=== PATIENT | male | born 1955 | race Caucasian/White ===

== ENCOUNTER 2024-08-25 18:37 | Inpatient (IN) | payer OTHER ==
[2024-08-25] MEDS: ACETAMINOPHEN 1000 MG/100 ML BAG IVPB ONE (19:44)
[2024-08-25 19:50] LABS: ABSOLUTE IMMATURE GRANULOCYTES 0.02 x10^3/uL (0.0-0.031)
[2024-08-25 19:52] LABS: BASOPHILS # 0.02 x10^3/uL (0.01-0.08); EOSINOPHIL % 2.1 % (0.8-7.0); EOSINOPHILS # 0.14 x10^3/uL (0.04-0.54); HEMATOCRIT 38.6 % (40.1-51.0); MCHC 33.7 g/dl (32.3-36.5); MEAN CELL VOLUME 89.6 fl (79.0-92.2); MEAN PLT VOLUME 10.5 fl (9.4-12.4); MONOCYTE # 0.33 x10^3/uL (0.30-0.82); MONOCYTE % 4.9 % (5.3-12.2); PLATELET COUNT 130 x10^3/uL (163-337); RDW 13.6 % (12.2-16.1)
[2024-08-25 19:55] LABS: EPI CELLS 6 /uL (0-25.1); HYALINE CASTS 0 /uL (0-3.1); URINE APPEARANCE CLEAR; URINE BACTERIA 14 /uL (0-1359); URINE BILIRUBIN 2+ (NEGATIVE); URINE COLOR DK YELLOW; URINE GLUCOSE (UA) NEGATIVE (NEGATIVE); URINE KETONE NEGATIVE (NEGATIVE); URINE LEUK ESTERASE TRACE (NEGATIVE); URINE NITRITE NEGATIVE (NEGATIVE); URINE PROTEIN NEGATIVE (NEGATIVE); URINE RBC 18 /uL (0-23.9); URINE WBC 6 /uL (0-25.8)
[2024-08-25 20:52] LABS: POTASSIUM 3.4 mmol/L (3.5-5.1)
[2024-08-25 20:55] LABS: CALCIUM 8.9 mg/dL (8.5-10.1)
[2024-08-25 20:56] LABS: ALBUMIN 3.2 g/dl (3.4-5.0); BLOOD UREA NITROGEN 14.9 mg/dL (7-18)
[2024-08-25 20:59] LABS: CREATININE 0.8 mg/dL (0.55-1.3)
[2024-08-25] MEDS ORDERED: CEFTRIAXONE 1 G/50 ML PREMIX 50 ML IVPB ONE (21:00)
[2024-08-25 21:01] LABS: BILIRUBIN,TOTAL 4.1 mg/dL (0.2-1); TOT PROT 5.9 g/dl (6.4-8.2)
[2024-08-26] MEDS ORDERED: ACETAMINOPHEN 1000 MG/100 ML BAG IVPB PRN (10:29)
[2024-08-26] MEDS: FUROSEMIDE 40 MG TABLET (FP) PO SCH (10:52)
[2024-08-26] MEDS: POTASSIUM CHLORIDE TABS 20 MEQ TABLET.ER (FP) PO SCH (10:52)
[2024-08-26] MEDS: SENNOSIDES 8.8 MG/5 ML SYRUP PO SCH (10:52)
[2024-08-26] MEDS: CEFTRIAXONE 1 G/50 ML PREMIX 50 ML IVPB SCH (10:52)
[2024-08-26 11:21] VITALS: BMI 30.5
[2024-08-26 22:09] LABS: COCAINE, UR NEGATIVE (NEGATIVE); METHADONE, UR NEGATIVE (NEGATIVE); OPIATES, URI NEGATIVE (NEGATIVE); URINE AMPHETAMINES NEGATIVE (NEGATIVE); URINE BARBITURATES NEGATIVE (NEGATIVE); URINE BENZODIAZEPINES NEGATIVE (NEGATIVE)
[2024-08-26 22:10] LABS: PHENCYCLIDINE,URINE NEGATIVE (NEGATIVE)
[2024-08-27 09:49] LABS: ABSOLUTE IMMATURE GRANULOCYTES 0.01 x10^3/uL (0.0-0.031); BASOPHILS # 0.02 x10^3/uL (0.01-0.08); EOSINOPHILS # 0.14 x10^3/uL (0.04-0.54); HEMATOCRIT 43.2 % (40.1-51.0); HEMOGLOBIN 14.3 g/dL (13.7-17.5); MCHC 33.1 g/dl (32.3-36.5); MEAN CELL VOLUME 89.6 fl (79.0-92.2); MEAN PLT VOLUME 10.8 fl (9.4-12.4); MONOCYTE # 0.28 x10^3/uL (0.30-0.82); PLATELET COUNT 154 x10^3/uL (163-337); RDW 13.6 % (12.2-16.4)
[2024-08-27 10:14] LABS: ALBUMIN 3.3 g/dl (3.4-5.0)
[2024-08-27 10:16] LABS: BILIRUBIN,DIRECT 1.9 mg/dL (0.0-0.2)
[2024-08-27 10:19] LABS: TOT PROT 6.2 g/dl (6.4-8.2)
[2024-08-27] MEDS: ACETAMINOPHEN 325 MG TABLET (FP) PO PRN (16:16)
[2024-08-27 20:00] LABS: POTASSIUM 3.8 mmol/L (3.5-5.1)
[2024-08-27 20:02] LABS: ALBUMIN 3.4 g/dl (3.4-5.0); CALCIUM 9.3 mg/dL (8.5-10.1)
[2024-08-27 20:07] LABS: CREATININE 0.7 mg/dL (0.55-1.3)
[2024-08-27 20:08] LABS: TOT PROT 6.4 g/dl (6.4-8.2)
[2024-08-27 20:09] LABS: BILIRUBIN,TOTAL 2.3 mg/dL (0.2-1)
[2024-08-27 21:37] LABS: BLOOD UREA NITROGEN 10.1 mg/dL (7-18); MAGNESIUM 2.1 mg/dL (1.8-2.4)
[2024-08-28 08:14] LABS: ABSOLUTE IMMATURE GRANULOCYTES 0.01 x10^3/uL (0.0-0.031); BASOPHILS # 0.02 x10^3/uL (0.01-0.08); EOSINOPHIL % 4.9 % (0.8-7.0); EOSINOPHILS # 0.23 x10^3/uL (0.04-0.54); HEMATOCRIT 46.8 % (40.1-51.0); HEMOGLOBIN 15.4 g/dL (13.7-17.5); MCHC 32.9 g/dl (32.3-36.5); MEAN CELL VOLUME 90.3 fl (79.0-92.2); MEAN PLT VOLUME 10.3 fl (9.4-12.4); MONOCYTE # 0.34 x10^3/uL (0.30-0.82); MONOCYTE % 7.3 % (5.3-12.2); PLATELET COUNT 201 x10^3/uL (163-337); RDW 13.5 % (12.2-16.4)
[2024-08-28 08:16] LABS: INR 1.01 (0.83-1.09)
[2024-08-28 08:31] LABS: POTASSIUM 3.9 mmol/L (3.5-5.1)
[2024-08-28 08:45] LABS: CALCIUM 9.9 mg/dL (8.5-10.1)
[2024-08-28 08:46] LABS: ALBUMIN 3.8 g/dl (3.4-5.0); BLOOD UREA NITROGEN 12.3 mg/dL (7-18); MAGNESIUM 2.2 mg/dL (1.8-2.4)
[2024-08-28 08:48] LABS: CREATININE 0.7 mg/dL (0.55-1.3)
[2024-08-28 08:50] LABS: TOT PROT 7.3 g/dl (6.4-8.2)
[2024-08-28 09:00] LABS: BILIRUBIN,TOTAL 2.6 mg/dL (0.2-1)
[2024-08-28] MEDS: GABAPENTIN 300 MG CAPSULE PO SCH (16:23)
[2024-08-28 19:09] LABS: GLIADIN ANTIBODY IGA 5 units (0-19); TRANSGLUTAMINASE IGG 4 U/mL (0-5)
[2024-08-28] MEDS: OLANZapine 10 MG TABLET PO SCH (22:13)
[2024-08-29] MEDS: oxyCODONE HCL 5 MG TABLET PO ONE (03:52)
[2024-08-29 08:36] LABS: ABSOLUTE IMMATURE GRANULOCYTES 0.02 x10^3/uL (0.0-0.031); BASOPHILS # 0.04 x10^3/uL (0.01-0.08); EOSINOPHIL % 6.8 % (0.8-7.0); EOSINOPHILS # 0.28 x10^3/uL (0.04-0.54); HEMATOCRIT 42.5 % (40.1-51.0); HEMOGLOBIN 14.1 g/dL (13.7-17.5); MCHC 33.2 g/dl (32.3-36.5); MEAN CELL VOLUME 89.9 fl (79.0-92.2); MONOCYTE # 0.28 x10^3/uL (0.30-0.82); MONOCYTE % 6.8 % (5.3-12.2); PLATELET COUNT 187 x10^3/uL (163-337); RDW 13.5 % (12.2-16.4)
[2024-08-29 09:08] LABS: CALCIUM 9.5 mg/dL (8.5-10.1)
[2024-08-29 09:09] LABS: ALBUMIN 3.3 g/dl (3.4-5.0); BLOOD UREA NITROGEN 11.6 mg/dL (7-18); MAGNESIUM 2.3 mg/dL (1.8-2.4)
[2024-08-29 09:12] LABS: BILIRUBIN,TOTAL 1.6 mg/dL (0.2-1); CREATININE 0.6 mg/dL (0.55-1.3); PHOSPHOROUS 3.6 mg/dL (2.5-4.9); TOT PROT 6.3 g/dl (6.4-8.2)
[2024-08-29] MEDS: PANTOPRAZOLE 40 MG TABLET PO SCH (09:28)
[2024-08-29] MEDS: LIDOCAINE PATCH REMOVAL MC SCH (12:37)
[2024-08-29] MEDS: LIDOCAINE 5% TOPICAL PATCH TP SCH (23:01)
[2024-08-30 08:48] LABS: ABSOLUTE IMMATURE GRANULOCYTES 0.04 x10^3/uL (0.0-0.031); BASOPHILS # 0.03 x10^3/uL (0.01-0.08); EOSINOPHIL % 5.1 % (0.8-7.0); EOSINOPHILS # 0.26 x10^3/uL (0.04-0.54); HEMOGLOBIN 15.3 g/dL (13.7-17.5); MCHC 33.3 g/dl (32.3-36.5); MEAN PLT VOLUME 9.9 fl (9.4-12.4); MONOCYTE % 5.9 % (5.3-12.2); PLATELET COUNT 211 x10^3/uL (163-337); RDW 13.5 % (12.2-16.4)
[2024-08-30 09:14] LABS: POTASSIUM 4.3 mmol/L (3.5-5.1)
[2024-08-30 09:18] LABS: ALBUMIN 3.5 g/dl (3.4-5.0); CALCIUM 9.3 mg/dL (8.5-10.1)
[2024-08-30 09:19] LABS: MAGNESIUM 2.2 mg/dL (1.8-2.4)
[2024-08-30 09:21] LABS: CREATININE 0.6 mg/dL (0.55-1.3)
[2024-08-30 09:23] LABS: BILIRUBIN,TOTAL 1.5 mg/dL (0.2-1); TOT PROT 6.8 g/dl (6.4-8.2)
[2024-08-30] MEDS: traMADol HCL 50 MG TABLET PO SCH (10:06)
[2024-08-30] MEDS: LIDOCAINE 5% TOPICAL PATCH TP SCH (11:30)
[2024-08-30 13:07] LABS: BILIRUBIN,DIRECT 0.9 mg/dL (0.0-0.2)
[2024-08-30] MEDS: LIDOCAINE 4% PATCH TP SCH (14:47)
[2024-08-30] MEDS: oxyCODONE HCL 5 MG TABLET PO PRN (17:16)
[2024-08-30] MEDS: LIDOCAINE PATCH REMOVAL MC SCH (21:21)
[2024-08-30] MEDS ORDERED: LIDOCAINE PATCH REMOVAL MC SCH (22:00)
[2024-08-31] MEDS ORDERED: BUPIVACAINE HCL/PF 0.25% (2.5MG/ML) 10 ML VIAL ONE (07:18)
[2024-08-31] MEDS ORDERED: ROCURONIUM BROMIDE 50 MG/5 ML SYRINGE ONE (07:31)
[2024-08-31] MEDS ORDERED: SUCCINYLCHOLINE CHLORIDE 200 MG/10 ML SYRINGE ONE (07:31)
[2024-08-31] MEDS ORDERED: MIDAZOLAM HCL 2 MG/2 ML SINGLE DOSE VIAL ONE (07:32)
[2024-08-31] MEDS ORDERED: PROPOFOL 20 ML ONE ×2 (07:36)
[2024-08-31] MEDS ORDERED: ACETAMINOPHEN INJECTION 100 ML ONE (07:50)
[2024-08-31] MEDS: BUPIVACAINE HCL/PF 0.25% (2.5MG/ML) 10 ML VIAL IJ ONE (07:55)
[2024-08-31] MEDS ORDERED: HYDROmorphone HCl 2 MG/ML VIAL ONE (07:56)
[2024-08-31] MEDS ORDERED: SUGAMMADEX SODIUM 200 MG/2 ML VIAL ONE (07:58)
[2024-08-31] MEDS ORDERED: TRANEXAMIC ACID 1000 MG/10 ML VIAL ONE (08:22)
[2024-08-31] MEDS: LACTATED RINGERS SOLUTION 1,000 ML IV SCH ×2 (10:33→10:45)
[2024-08-31] MEDS: LIDOCAINE 5% TOPICAL PATCH TP SCH (12:03)
[2024-08-31] MEDS: FUROSEMIDE 40 MG TABLET (FP) PO SCH (12:03)
[2024-08-31] MEDS: GABAPENTIN 300 MG CAPSULE PO SCH (14:40)
[2024-08-31] MEDS: ACETAMINOPHEN 1000 MG/100 ML BAG IVPB SCH (14:41)
[2024-08-31 14:45] LABS: HEMATOCRIT 43.2 % (40.1-51.0); HEMOGLOBIN 14.3 g/dL (13.7-17.5); MCHC 33.1 g/dl (32.3-36.5); MEAN CELL VOLUME 90.9 fl (79.0-92.2); MEAN PLT VOLUME 10.2 fl (9.4-12.4); PLATELET COUNT 195 x10^3/uL (163-337); RDW 13.3 % (12.2-16.4)
[2024-08-31 15:33] LABS: HEPATITIS B SURF AG NON-MATERN NON-REACTIVE (NONREACTIVE)
[2024-08-31 15:45] LABS: POTASSIUM 4.6 mmol/L (3.5-5.1)
[2024-08-31 15:49] LABS: CALCIUM 9.3 mg/dL (8.5-10.1)
[2024-08-31 15:50] LABS: ALBUMIN 3.4 g/dl (3.4-5.0); BLOOD UREA NITROGEN 14.8 mg/dL (7-18)
[2024-08-31 15:53] LABS: CREATININE 0.7 mg/dL (0.55-1.3)
[2024-08-31 15:54] LABS: BILIRUBIN,TOTAL 1.1 mg/dL (0.2-1); TOT PROT 6.3 g/dl (6.4-8.2)
[2024-08-31 16:01] LABS: HCV DIAGNOSTIC IN-HOUSE W/RFLX NON-REACTIVE (NONREACTIVE)
[2024-08-31] MEDS: LIDOCAINE PATCH REMOVAL MC SCH (21:14)
[2024-08-31] MEDS: POTASSIUM CHLORIDE TABS 20 MEQ TABLET.ER (FP) PO SCH (21:14)
[2024-08-31] MEDS: OLANZapine 10 MG TABLET PO SCH (21:14)
[2024-08-31] MEDS: oxyCODONE HCL 5 MG TABLET PO PRN (21:57)
[2024-08-31] MEDS ORDERED: LIDOCAINE PATCH REMOVAL MC SCH (22:00)
[2024-09-01 08:29] LABS: ABSOLUTE IMMATURE GRANULOCYTES 0.02 x10^3/uL (0.0-0.031); BASOPHILS # 0.01 x10^3/uL (0.01-0.08); EOSINOPHIL % 1.2 % (0.8-7.0); EOSINOPHILS # 0.08 x10^3/uL (0.04-0.54); HEMATOCRIT 39.3 % (40.1-51.0); HEMOGLOBIN 12.8 g/dL (13.7-17.5); MCHC 32.6 g/dl (32.3-36.5); MEAN CELL VOLUME 91.4 fl (79.0-92.2); MEAN PLT VOLUME 10.1 fl (9.4-12.4); MONOCYTE # 0.34 x10^3/uL (0.30-0.82); MONOCYTE % 5.2 % (5.3-12.2); PLATELET COUNT 219 x10^3/uL (163-337); RDW 13.5 % (12.2-16.4)
[2024-09-01 08:46] LABS: POTASSIUM 4.2 mmol/L (3.5-5.1)
[2024-09-01 08:51] LABS: BLOOD UREA NITROGEN 17.8 mg/dL (7-18); CALCIUM 9.2 mg/dL (8.5-10.1)
[2024-09-01 08:55] LABS: CREATININE 0.7 mg/dL (0.55-1.3)
[2024-09-01 08:56] LABS: BILIRUBIN,TOTAL 0.9 mg/dL (0.2-1); TOT PROT 5.7 g/dl (6.4-8.2)
[2024-09-01] MEDS: MULTIVITAMINS (DAILY MVI) TABLET (FP) PO SCH (09:30)
[2024-09-01] MEDS: AMINO ACIDS/PROTEIN HYDROLYS 30 ML LIQUID.PKT PO SCH (09:30)
[2024-09-01] MEDS: ASCORBIC ACID 250 MG TABLET (FP) PO SCH (09:31)
[2024-09-01 16:16] VITALS: RESP 18
[2024-09-02 09:31] LABS: ABSOLUTE IMMATURE GRANULOCYTES 0.02 x10^3/uL (0.0-0.031); BASOPHILS # 0.02 x10^3/uL (0.01-0.08); EOSINOPHIL % 2.8 % (0.8-7.0); EOSINOPHILS # 0.16 x10^3/uL (0.04-0.54); HEMATOCRIT 42.1 % (40.1-51.0); HEMOGLOBIN 13.7 g/dL (13.7-17.5); MCHC 32.5 g/dl (32.3-36.5); MEAN CELL VOLUME 93.3 fl (79.0-92.2); MEAN PLT VOLUME 9.6 fl (9.4-12.4); MONOCYTE # 0.23 x10^3/uL (0.30-0.82); MONOCYTE % 4.1 % (5.3-12.2); PLATELET COUNT 206 x10^3/uL (163-337); RDW 13.6 % (12.2-16.4)
[2024-09-02 09:57] LABS: POTASSIUM 4.4 mmol/L (3.5-5.1)
[2024-09-02 10:32] LABS: ALBUMIN 3.2 g/dl (3.4-5.0); MAGNESIUM 2.2 mg/dL (1.8-2.4)
[2024-09-02 10:34] LABS: BLOOD UREA NITROGEN 14.6 mg/dL (7-18)
[2024-09-02 10:35] LABS: CREATININE 0.8 mg/dL (0.55-1.3)
[2024-09-02 10:37] LABS: BILIRUBIN,TOTAL 0.9 mg/dL (0.2-1)
[2024-09-03] MEDS: POLYETHYLENE GLYCOL (HEALTHYLAX) 3350 17 GM PACKET PO ONE (10:17)
[2024-09-03 13:34] LABS: ABSOLUTE IMMATURE GRANULOCYTES 0.03 x10^3/uL (0.0-0.031); BASOPHILS # 0.04 x10^3/uL (0.01-0.08); EOSINOPHIL % 4.2 % (0.8-7.0); EOSINOPHILS # 0.27 x10^3/uL (0.04-0.54); HEMATOCRIT 47.9 % (40.1-51.0); HEMOGLOBIN 15.7 g/dL (13.7-17.5); MCHC 32.8 g/dl (32.3-36.5); MEAN CELL VOLUME 91.8 fl (79.0-92.2); MEAN PLT VOLUME 10.2 fl (9.4-12.4); MONOCYTE # 0.38 x10^3/uL (0.30-0.82); MONOCYTE % 5.9 % (5.3-12.2); PLATELET COUNT 258 x10^3/uL (163-337); RDW 13.4 % (12.2-16.4)
[2024-09-03] MEDS ORDERED: ACETAMINOPHEN 500 MG TABLET (FP) PO PRN (14:00)
[2024-09-03 14:09] LABS: POTASSIUM 4.4 mmol/L (3.5-5.1)
[2024-09-03 14:13] LABS: ALBUMIN 3.6 g/dl (3.4-5.0); BLOOD UREA NITROGEN 15.1 mg/dL (7-18)
[2024-09-03 14:14] LABS: CALCIUM 9.8 mg/dL (8.5-10.1)
[2024-09-03 14:17] LABS: CREATININE 0.7 mg/dL (0.55-1.3)
[2024-09-03 14:18] LABS: TOT PROT 6.9 g/dl (6.4-8.2)
[2024-09-03 15:11] VITALS: BP 122/71; PULSE 71; TEMP 97.7
[2024-09-03] MEDS: oxyCODONE HCL 5 MG TABLET PO PRN (15:49)
== END 2024-09-03 17:20 | disposition home or self-care (01) | DRG 419 ==
LOC: JER 18:37 → EDBD 18:37 → JERBED 08-26 06:27 → J8W 08-26 09:01 → OBSVTOIN 08-26 12:58
PROVIDERS: ADMIT Internal Medicine; ATTEND Internal Medicine
PROC: 0FT44ZZ Resection of Gallbladder, Percutaneous Endoscopic Approach (ICD-10-PCS; principal; 2024-08-31 07:30)
DX: K80.50 Calculus of bile duct without cholangitis or cholecystitis without obstruction (principal); K80.20 Calculus of gallbladder without cholecystitis without obstruction; I11.0 Hypertensive heart disease with heart failure; I50.9 Heart failure, unspecified; D69.6 Thrombocytopenia, unspecified; F31.9 Bipolar disorder, unspecified; R31.9 Hematuria, unspecified
CPT/HCPCS: 36415; 71045-TC-FY; 74177-TC; 74183-TC; 76705-TC; 80053; 80076; 80307; 81003; 82103; 82248; 82550; 82784; 82977; 83516; 83735; 84100; 84484; 85025; 85610; 86038; 86704; 86705; 86707; 86708; 86709; 86803; 86850; 86900; 86901; 87086; 87340; 87350; 87517; 87635; 87902; 88304-TC; 93005; 93010; 93306-TC; 94010; 94760; 97116-GP; 97161-GP; 99285-25; A9576; G0378; Q9967